=== PATIENT | male | born 1950 | race Two or more races ===

== ENCOUNTER 2022-04-20 18:28 | Emergency (ER) | payer MEDICARE, MEDICAID ==
[~2022-04-20] VITALS: Ht 175.3 cm; Wt 109.0 kg
[2022-04-20 23:06] LABS: BASOPHILS % 1.3 % (0.0-2.0); EOSINOPHILS % 7.5 % (0.0-5.0); HEMATOCRIT. 27.8 % (42.0-52.0); HEMOGLOBIN. 9.4 g/dL (14.0-18.0); LYMPHOCYTES % 41.5 % (20.0-50.0); MEAN CORPUSCULAR HEMOGLOBIN 32.2 pg (28.0-32.0); MEAN CORPUSCULAR VOLUME 94.6 fL (80.0-94.0); MEAN PLATELET VOLUME 8.5 fl (7.4-10.4); NEUTROPHILS % 36.7 % (40.0-76.0); PLATELET 94 x1000/uL (130-400); RED BLOOD CELL COUNT 2.93 mill/uL (4.7-6.1)
[2022-04-20 23:15] LABS: CHLORIDE 113 mEq/L (98-107)
[2022-04-21 00:52] LABS: CLARITY URINE CLEAR (CLEAR); COLOR URINE DARK YELLOW (YELLOW); KETONES URINE NEGATIVE (NEGATIVE); LEUKOCYTE ESTERASE URINE TRACE (NEGATIVE); NITRITE URINE NEGATIVE (NEGATIVE); OCCULT BLOOD URINE TRACE (NEGATIVE); PH URINE 5.5 (4.5-8.0); PROTEIN URINE NEGATIVE (NEGATIVE); SPECIFIC GRAVITY URINE 1.021 (1.005-1.030)
[2022-04-21 14:00] VITALS: BP 142/80
== END 2022-04-21 14:25 | disposition home or self-care (01) ==
LOC: ER 18:28
DX: H01.00B Unspecified blepharitis left eye, upper and lower eyelids (principal); H01.00A Unspecified blepharitis right eye, upper and lower eyelids; D61.818 Other pancytopenia; K74.60 Unspecified cirrhosis of liver; I10 Essential (primary) hypertension; J44.9 Chronic obstructive pulmonary disease, unspecified; F17.210 Nicotine dependence, cigarettes, uncomplicated; I50.9 Heart failure, unspecified; Z88.2 Allergy status to sulfonamides; Z68.35 Body mass index [BMI] 35.0-35.9, adult
CPT/HCPCS: 36415; 80053; 81003; 85025; 99285

== ENCOUNTER 2022-05-09 18:02 | Inpatient (IN) | payer MEDICARE, MEDICAID ==
[~2022-05-09] VITALS: Ht 167.6 cm; Wt 98.4 kg
[2022-05-09 19:15] LABS: HEMATOCRIT. 25.5 % (42.0-52.0); HEMOGLOBIN. 8.7 g/dL (14.0-18.0); MEAN CORPUSCULAR HEMOGLOBIN 32.7 pg (28.0-32.0); MEAN CORPUSCULAR VOLUME 95.9 fL (80.0-94.0); MEAN PLATELET VOLUME 9.9 fl (7.4-10.4); PLATELET 101 x1000/uL (130-400); RED BLOOD CELL COUNT 2.66 mill/uL (4.7-6.1); RED CELL DISTRIBUTION WIDTH 16.2 % (11.6-14.6)
[2022-05-09 19:17] LABS: CLARITY URINE CLEAR (CLEAR); COLOR URINE DARK YELLOW (YELLOW); KETONES URINE TRACE (NEGATIVE); LEUKOCYTE ESTERASE URINE 2+ (NEGATIVE); NITRITE URINE NEGATIVE (NEGATIVE); OCCULT BLOOD URINE NEGATIVE (NEGATIVE); PH URINE 5.5 (4.5-8.0); PROTEIN URINE TRACE (NEGATIVE); SPECIFIC GRAVITY URINE 1.025 (1.005-1.030)
[2022-05-09 19:24] LABS: CHLORIDE 111 mEq/L (98-107)
[2022-05-09 19:53] LABS: PLATELET ESTIMATE DECREASED
[2022-05-09] MEDS ORDERED: IPRATROPIUM/ALBUTEROL 0.5-3(2.5)MG/3ML NEB HHN PRN (23:30)
[2022-05-09] MEDS ORDERED: ACETAMINOPHEN 325MG TABLET PO PRN ×2 (23:30)
[2022-05-09] MEDS ORDERED: MVI, ADULT NO.1 10 ML, FOLIC ACID 1 MG, THIAMINE HCL 100 MG in SODIUM CHLORIDE 0.9% 1,0... IV SCH ×4 (23:30)
[2022-05-09] MEDS ORDERED: HYDROCODONE/ACETAMINOPHEN 5/325MG TABLET PO PRN (23:30)
[2022-05-09] MEDS ORDERED: MAGNESIUM/ALUMINUM HYDROXIDE/SIMETHICONE 30ML UDC PO PRN (23:30)
[2022-05-09] MEDS ORDERED: CLONIDINE 0.1MG TABLET PO PRN (23:30)
[2022-05-09] MEDS ORDERED: ONDANSETRON HCL 4MG/2ML INJ IV PRN (23:30)
[2022-05-09] MEDS ORDERED: DOCUSATE SODIUM 100MG CAPSULE PO PRN (23:30)
[2022-05-09] MEDS ORDERED: GUAIFENESIN 200MG/10ML SUGAR FREE UDC PO PRN (23:30)
[2022-05-09] MEDS ORDERED: CEFTRIAXONE 1 G PREMIX 50 ML IV SCH (23:30)
[2022-05-10 03:43] LABS: CHLORIDE 113 mEq/L (98-107)
[2022-05-10 03:51] LABS: ETHANOL BLOOD < 10 mg/dL
[2022-05-10 04:00] VITALS: BP 151/58
[2022-05-10] MEDS ORDERED: THIA100T72 MT (04:26)
[2022-05-10] MEDS ORDERED: AMLO5TAB88 MT (04:26)
[2022-05-10] MEDS ORDERED: FAMO20TA8 PO (04:26)
[2022-05-10] MEDS ORDERED: QUET100T34 MT (04:26)
[2022-05-10] MEDS ORDERED: TOPUD PO (04:26)
[2022-05-10] MEDS ORDERED: NEPVIT MT (04:26)
[2022-05-10] MEDS ORDERED: HYDR-4134 MT (04:26)
[2022-05-10] MEDS ORDERED: CHOL400D2 MT (04:26)
[2022-05-10] MEDS ORDERED: FOLI-43 MT (04:26)
[2022-05-10] MEDS ORDERED: NEPVIT PO (04:26)
[2022-05-10] MEDS ORDERED: HJ10 IJ (04:26)
[2022-05-10] MEDS ORDERED: DEXTROSE 50% WATER 50ML SYRINGE IV PRN (06:30)
[2022-05-10] MEDS: BLOOD SUGAR DIAGNOSTIC STRIP TEST SCH ×4 (07:40→21:00)
[2022-05-10 08:00] VITALS: BP 159/67
[2022-05-10] MEDS: INSULIN LISPRO 100 UNITS/ML SUBCUT SCH ×4 (08:10→21:00)
[2022-05-10] MEDS: ENOXAPARIN 30MG/0.3ML SYR SUBCUT SCH ×2 (11:24→21:00)
[2022-05-10 12:00] VITALS: BP 176/69
[2022-05-10 12:40] LABS: BASOPHILS % 2.4 % (0.0-2.0); HEMATOCRIT. 26.8 % (42.0-52.0); HEMOGLOBIN. 9.2 g/dL (14.0-18.0); LYMPHOCYTES % 37.6 % (20.0-50.0); MEAN CORPUSCULAR HEMOGLOBIN 32.6 pg (28.0-32.0); MEAN CORPUSCULAR VOLUME 94.8 fL (80.0-94.0); MEAN PLATELET VOLUME 10.4 fl (7.4-10.4); MONOCYTES % 14.5 % (2.0-8.0); NEUTROPHILS % 39.5 % (40.0-76.0); PLATELET 103 x1000/uL (130-400); RED BLOOD CELL COUNT 2.83 mill/uL (4.7-6.1); RED CELL DISTRIBUTION WIDTH 16.2 % (11.6-14.6)
[2022-05-10] MEDS: FUROSEMIDE 40MG/4ML VIAL IVP SCH ×2 (15:45→18:58)
[2022-05-10 16:00] VITALS: BP 160/87
[2022-05-10 16:09] LABS: VITAMIN B12 SERUM 564 pg/mL (211-911)
[2022-05-10] MEDS ORDERED: NALOXONE HCL 0.4MG/ML VIAL IV PRN (18:15)
[2022-05-10] MEDS ORDERED: AMLODIPINE 5MG TABLET PO SCH (20:15)
[2022-05-10] MEDS: FAMOTIDINE 20MG TABLET PO SCH (21:00)
[2022-05-10] MEDS: CEFTRIAXONE 1,000 MG in DEXTROSE 5% WATER 50 ML IV SCH (23:00)
[2022-05-11] VITALS: BP 153/49
[2022-05-11 04:00] VITALS: BP 229/59
[2022-05-11] MEDS: BLOOD SUGAR DIAGNOSTIC STRIP TEST SCH ×2 (07:41→12:44)
[2022-05-11] MEDS: INSULIN LISPRO 100 UNITS/ML SUBCUT SCH ×2 (07:41→12:45)
[2022-05-11 08:00] VITALS: BP 122/86
[2022-05-11] MEDS: ENOXAPARIN 30MG/0.3ML SYR SUBCUT SCH ×2 (09:50→21:12)
[2022-05-11 12:00] VITALS: BP 159/58
[2022-05-11] MEDS ORDERED: VANCOMYCIN 1,500 MG in DEXT 5% WATER 250 ML IV SCH (15:00)
[2022-05-11] MEDS: FAMOTIDINE 20MG TABLET PO SCH (21:12)
[2022-05-11] MEDS: CEFTRIAXONE 1,000 MG in DEXTROSE 5% WATER 50 ML IV SCH (23:00)
[2022-05-12] MEDS ORDERED: VANCOMYCIN 1.25GM PMX (XELLIA) 250 ML IV SCH (03:00)
[2022-05-12] MEDS: AMLODIPINE 10MG TABLET PO SCH (09:00)
[2022-05-12] MEDS: ENOXAPARIN 30MG/0.3ML SYR SUBCUT SCH ×2 (09:00→21:53)
[2022-05-12] MEDS: FUROSEMIDE 40MG/4ML VIAL IVP SCH (09:00)
[2022-05-12] MEDS: VANCOMYCIN 1.25GM PMX (XELLIA) 250 ML IV SCH (10:00)
[2022-05-12] MEDS: FAMOTIDINE 20MG TABLET PO SCH (21:53)
[2022-05-12] MEDS: CEFTRIAXONE 1,000 MG in DEXTROSE 5% WATER 50 ML IV SCH (23:00)
[2022-05-13] VITALS: BP 156/81
[2022-05-13 04:00] VITALS: BP 190/72
[2022-05-13] MEDS: VANCOMYCIN 1.25GM PMX (XELLIA) 250 ML IV SCH ×2 (04:00→21:45)
[2022-05-13 08:00] VITALS: BP 168/70
[2022-05-13] MEDS: FUROSEMIDE 40MG/4ML VIAL IVP SCH (09:00)
[2022-05-13] MEDS: AMLODIPINE 10MG TABLET PO SCH (09:18)
[2022-05-13] MEDS: ENOXAPARIN 30MG/0.3ML SYR SUBCUT SCH ×2 (09:19→21:45)
[2022-05-13 12:00] VITALS: BP 155/66
[2022-05-13 16:00] VITALS: BP 138/76
[2022-05-13 20:00] VITALS: BP 166/57
[2022-05-13] MEDS: FAMOTIDINE 20MG TABLET PO SCH (21:45)
[2022-05-13] MEDS: CEFTRIAXONE 1,000 MG in DEXTROSE 5% WATER 50 ML IV SCH (23:11)
[2022-05-14] VITALS: BP 176/93
[2022-05-14 04:00] VITALS: BP 176/78
[2022-05-14 08:00] VITALS: BP 155/58
[2022-05-14] MEDS: AMLODIPINE 10MG TABLET PO SCH (08:41)
[2022-05-14] MEDS: FUROSEMIDE 40MG TABLET PO SCH (08:42)
[2022-05-14] MEDS: ENOXAPARIN 30MG/0.3ML SYR SUBCUT SCH ×2 (08:42→21:47)
[2022-05-14 09:09] LABS: BASOPHILS % 1.4 % (0.0-2.0); EOSINOPHILS % 2.6 % (0.0-5.0); HEMATOCRIT. 28.6 % (42.0-52.0); HEMOGLOBIN. 9.7 g/dL (14.0-18.0); LYMPHOCYTES % 28.2 % (20.0-50.0); MEAN CORPUSCULAR HEMOGLOBIN 32.3 pg (28.0-32.0); MEAN CORPUSCULAR VOLUME 95.5 fL (80.0-94.0); MEAN PLATELET VOLUME 9.8 fl (7.4-10.4); MONOCYTES % 9.9 % (2.0-8.0); NEUTROPHILS % 57.9 % (40.0-76.0); PLATELET 142 x1000/uL (130-400); RED BLOOD CELL COUNT 2.99 mill/uL (4.7-6.1); RED CELL DISTRIBUTION WIDTH 16.2 % (11.6-14.6)
[2022-05-14 09:11] LABS: CHLORIDE 108 mEq/L (98-107)
[2022-05-14] MEDS ORDERED: HYDRALAZINE HCL 50MG TABLET PO NR (11:45)
[2022-05-14 12:00] VITALS: BP 149/70
[2022-05-14] MEDS: POTASSIUM CHLORIDE 20MEQ TABLET SR PO SCH (13:03)
[2022-05-14] MEDS ORDERED: POTASSIUM CHLORIDE 20MEQ TABLET SR PO NR (17:00)
[2022-05-14 20:00] VITALS: BP 161/59
[2022-05-14] MEDS: VANCOMYCIN 1.25GM PMX (XELLIA) 250 ML IV SCH (20:22)
[2022-05-14] MEDS ORDERED: HYDRALAZINE HCL 50MG TABLET PO SCH (21:00)
[2022-05-14] MEDS: FAMOTIDINE 20MG TABLET PO SCH (21:48)
[2022-05-14] MEDS: HYDRALAZINE HCL 100MG TABLET PO SCH (21:48)
[2022-05-14] MEDS: CEFTRIAXONE 1,000 MG in DEXTROSE 5% WATER 50 ML IV SCH (23:20)
[2022-05-15 08:00] VITALS: BP 144/64
[2022-05-15] MEDS: AMLODIPINE 10MG TABLET PO SCH (09:03)
[2022-05-15] MEDS: POTASSIUM CHLORIDE 20MEQ TABLET SR PO SCH (09:03)
[2022-05-15] MEDS: HYDRALAZINE HCL 100MG TABLET PO SCH (09:03)
[2022-05-15] MEDS: ENOXAPARIN 30MG/0.3ML SYR SUBCUT SCH (09:03)
[2022-05-15] MEDS: FUROSEMIDE 40MG TABLET PO SCH (09:03)
[2022-05-15] MEDS: VANCOMYCIN 1.25GM PMX (XELLIA) 250 ML IV SCH (09:09)
[2022-05-15 10:26] LABS: BASOPHILS % 1.4 % (0.0-2.0); EOSINOPHILS % 1.3 % (0.0-5.0); HEMOGLOBIN. 9.8 g/dL (14.0-18.0); LYMPHOCYTES % 22.8 % (20.0-50.0); MEAN CORPUSCULAR HEMOGLOBIN 32.5 pg (28.0-32.0); MEAN CORPUSCULAR VOLUME 96.2 fL (80.0-94.0); MEAN PLATELET VOLUME 10.1 fl (7.4-10.4); MONOCYTES % 12.8 % (2.0-8.0); NEUTROPHILS % 61.7 % (40.0-76.0); PLATELET 168 x1000/uL (130-400); RED BLOOD CELL COUNT 3.01 mill/uL (4.7-6.1); RED CELL DISTRIBUTION WIDTH 16.4 % (11.6-14.6)
[2022-05-15 10:46] LABS: CHLORIDE 108 mEq/L (98-107)
[2022-05-15 12:00] VITALS: BP 130/62
[2022-05-15 14:51] VITALS: BP 130/62
[2022-05-17 15:06] LABS: 25-HYDROXY VITAMIN D3 16 ng/mL (.)
== END 2022-05-15 15:47 | DRG 291 ==
LOC: ER 18:02 → MICUSO 22:45 → EDBEDREQTM 22:49 → EDBEDREQ 22:49 → SUPCPDRO 23:11 → 7WST 05-10 04:03 → 6EST 05-14 14:37
PROVIDERS: ADMIT Internal Medicine; ATTEND Internal Medicine
DX: I11.0 Hypertensive heart disease with heart failure (principal); E43 Unspecified severe protein-calorie malnutrition; I50.43 Acute on chronic combined systolic (congestive) and diastolic (congestive) heart failure; G93.40 Encephalopathy, unspecified; D61.818 Other pancytopenia; N39.0 Urinary tract infection, site not specified; J44.9 Chronic obstructive pulmonary disease, unspecified; D64.9 Anemia, unspecified; E66.9 Obesity, unspecified; E87.8 Other disorders of electrolyte and fluid balance, not elsewhere classified; E78.5 Hyperlipidemia, unspecified; N50.89 Other specified disorders of the male genital organs; K75.9 Inflammatory liver disease, unspecified; K08.89 Other specified disorders of teeth and supporting structures; H02.843 Edema of right eye, unspecified eyelid; F32.A Depression, unspecified; D69.6 Thrombocytopenia, unspecified; R74.01 Elevation of levels of liver transaminase levels; R73.9 Hyperglycemia, unspecified; F10.10 Alcohol abuse, uncomplicated; Z88.8 Allergy status to other drugs, medicaments and biological substances; Z68.35 Body mass index [BMI] 35.0-35.9, adult; Z59.00 Homelessness unspecified; Z79.899 Other long term (current) drug therapy
CPT/HCPCS: 36415; 71045; 80048; 80053; 80320; 81003; 82306; 82607; 82746; 82962; 83036; 83540; 83550; 83605; 83880; 84145; 84443; 84484; 85025; 85379; 93005; 93970; 97162; 99285; C1893; J0696; J1650; J1940; J3370; J3411; J3490; J7030; J7060; G0480

== ENCOUNTER 2022-05-17 22:11 | Emergency (ER) | payer MEDICARE, MEDICAID ==
[~2022-05-17] VITALS: Ht 170.2 cm; Wt 80.0 kg
[~2022-05-17 22:11] MED LIST: AMLO5TAB88 MT; CHOL400D2 MT; FAMO20TA8 PO; FOLI-43 MT; HJ10 IJ; HYDR-4134 MT; NEPVIT MT; NEPVIT PO; QUET100T34 MT; THIA100T72 MT; TOPUD PO
[2022-05-18 00:39] LABS: EOSINOPHILS % 2.3 % (0.0-5.0); HEMOGLOBIN. 8.8 g/dL (14.0-18.0); MEAN CORPUSCULAR VOLUME 94.7 fL (80.0-94.0); MEAN PLATELET VOLUME 9.1 fl (7.4-10.4); MONOCYTES % 13.4 % (2.0-8.0); NEUTROPHILS % 63.3 % (40.0-76.0); PLATELET 166 x1000/uL (130-400); RED BLOOD CELL COUNT 2.74 mill/uL (4.7-6.1); RED CELL DISTRIBUTION WIDTH 15.9 % (11.6-14.6)
[2022-05-18 00:47] LABS: CHLORIDE 108 mEq/L (98-107)
[2022-05-18] MEDS ORDERED: CEFTRIAXONE 1 G PREMIX 50 ML IV ONE (04:00)
[2022-05-18] MEDS ORDERED: AZITHROMYCIN 500MG/250ML 250 ML IV ONE (04:00)
[2022-05-18] MEDS ORDERED: DOXY100C5 MT (05:10)
[2022-05-18 11:55] VITALS: BP 140/57
== END 2022-05-18 11:57 ==
LOC: ER 22:11
DX: J18.9 Pneumonia, unspecified organism (principal); D64.9 Anemia, unspecified; I50.9 Heart failure, unspecified; R41.82 Altered mental status, unspecified; Z79.899 Other long term (current) drug therapy; R90.82 White matter disease, unspecified
CPT/HCPCS: 36415; 71045; 80053; 83605; 84484; 85025; 99285